=== PATIENT | male | born 1995 | race Caucasian/White ===

== ENCOUNTER 2017-01-13 09:54 | Emergency (ER) | payer OTHER ==
[~2017-01-13] VITALS: Ht 193 cm; Wt 151.1 kg
[~2017-01-13 09:54] MED LIST: ALBUTEROL17 GM IH
[2017-01-13 11:31] VITALS: BP 129/105
== END 2017-01-13 11:32 | disposition home or self-care (01) ==
LOC: EME 09:54
DX: F51.4 Sleep terrors [night terrors] (principal); F51.3 Sleepwalking [somnambulism]; Z87.820 Personal history of traumatic brain injury; Z88.0 Allergy status to penicillin
CPT/HCPCS: 99281; 99283

== ENCOUNTER 2017-06-24 03:16 | Emergency (ER) | payer OTHER ==
[~2017-06-24] VITALS: Ht 193 cm; Wt 147.4 kg
[2017-06-24 13:04] VITALS: BP 119/68
[2017-06-25] MEDS ORDERED: ATIVAN2 MG PO (17:12)
[2017-06-25] MEDS ORDERED: THIAMINE HCL100 MG PO (17:12)
== END 2017-06-24 15:00 | disposition home or self-care (01) ==
LOC: EME → EDBD 03:16 → EME 15:00
DX: F10.129 Alcohol abuse with intoxication, unspecified (principal); Y90.8 Blood alcohol level of 240 mg/100 ml or more; R45.1 Restlessness and agitation; J45.909 Unspecified asthma, uncomplicated; Z88.0 Allergy status to penicillin
CPT/HCPCS: 90837; 99281; 99285; G0480; J1630

== ENCOUNTER 2017-06-25 13:24 | Emergency (ER) | payer OTHER ==
[~2017-06-25] VITALS: Ht 190.5 cm; Wt 144.2 kg
[2017-06-25 15:41] LABS: HEMATOCRIT 50.4 % (38.0-50.0); MCH 31.2 PG (29.0-34.0); MCHC 34.9 G/DL (30.0-36.0); MCV 89.2 FL (86-99); MEAN PLAT.VOLUME 8.4 uM^3 (9.0-12.4); PLATELET COUNT 420 K/uL (156-360); RBC DIS.WIDTH-CV 11.8 % (11.8-14.6); RBC DIS.WIDTH-SD 38.1 % (39-53); RED BLOOD COUNT 5.65 M/uL (4.00-5.50); WHITE BLOOD COUNT 14.7 K/uL (4.1-10.2)
[2017-06-25 15:50] LABS: CHLORIDE 103 mEq/L (99-109); POTASSIUM 3.6 mEq/L (3.7-5.4); SODIUM 143 mEq/L (136-147)
[2017-06-25 15:52] LABS: GLUCOSE 131 mg/dL (70-99)
[2017-06-25 15:53] LABS: ANION GAP 24 MEQ/L (2-14)
[2017-06-25 15:56] LABS: GFR ESTIMATE (CALCULATED) > 59 mL/min/
[2017-06-25 15:57] LABS: UREA NITROGEN (BUN) 9 mg/dL (9-23)
[2017-06-25 16:11] LABS: SERUM ETHYL ALCOHOL < 10 mg/dL
[2017-06-25] MEDS ORDERED: ATIVAN2 MG PO (17:12)
[2017-06-25] MEDS ORDERED: THIAMINE HCL100 MG PO (17:12)
[2017-06-25 18:31] VITALS: BP 153/80
== END 2017-06-25 18:32 | disposition home or self-care (01) ==
LOC: EME 13:24
PROVIDERS: Physician Assistant
PROC: 3E0234Z Introduction of Serum, Toxoid and Vaccine into Muscle, Percutaneous Approach (ICD-10-PCS; principal; 2017-06-25)
DX: F10.239 Alcohol dependence with withdrawal, unspecified (principal); M62.838 Other muscle spasm; R11.0 Nausea; M54.2 Cervicalgia; Z23 Encounter for immunization; J45.909 Unspecified asthma, uncomplicated; F17.200 Nicotine dependence, unspecified, uncomplicated
CPT/HCPCS: 80048; 81003; 82550; 82553; 85027; 99281; 99284; G0480; J3360; J3411; J7030; J7050

== ENCOUNTER 2018-01-13 20:20 | Emergency (ER) | payer SELFPAY ==
[~2018-01-13] VITALS: Ht 190.5 cm; Wt 143.0 kg
[~2018-01-13 20:20] MED LIST changes: +ATIVAN2 MG PO; +THIAMINE HCL100 MG PO
[2018-01-14 00:32] LABS: HEMATOCRIT 43.7 % (38.0-50.0); HEMOGLOBIN 15.5 G/DL (12.5-16.6); MCHC 35.5 G/DL (30.0-36.0); MCV 90.1 FL (86-99); PLATELET COUNT 261 K/uL (156-360); RBC DIS.WIDTH-CV 11.7 % (11.8-14.6); RBC DIS.WIDTH-SD 38.1 % (39-53); RED BLOOD COUNT 4.85 M/uL (4.00-5.50); WHITE BLOOD COUNT 7.4 K/uL (4.1-10.2)
[2018-01-14 00:48] LABS: ALBUMIN 4.4 g/dL (3.2-4.8); CHLORIDE 105 mEq/L (99-109); POTASSIUM 3.9 mEq/L (3.7-5.4); SODIUM 138 mEq/L (136-147)
[2018-01-14 00:50] LABS: GLUCOSE 91 mg/dL (70-99)
[2018-01-14 00:51] LABS: TOTAL PROTEIN 6.7 g/dL (6.4-8.3)
[2018-01-14 00:52] LABS: TOTAL BILIRUBIN 1.6 mg/dL (0.0-1.0)
[2018-01-14 00:54] LABS: ALKALINE PHOSPHATASE 55 IU/L (3-129); GFR ESTIMATE (CALCULATED) > 59 mL/min/ (58.99-99999)
[2018-01-14 00:55] LABS: UREA NITROGEN (BUN) 7 mg/dL (9-23)
[2018-01-14 00:56] LABS: AST (GOT) 30 IU/L (2-34)
[2018-01-14 00:57] LABS: ALT (GPT) 45 IU/L (3-49); LIPASE 14 U/L (1.0-51.0)
[2018-01-14 01:29] LABS: APPEARANCE SL.HAZY ((CLEAR)); BILIRUBIN NEGATIVE; BLOOD NEGATIVE; COLOR YELLOW ((YELLOW)); GLUCOSE (STRIP) NEGATIVE; KETONES NEGATIVE; LEUKOCYTES NEGATIVE; NITRITE NEGATIVE; PROTEIN (STRIP) NEGATIVE; SPECIFIC GRAVITY 1.017 (1.000-1.030); UROBILINOGEN 0.2 MG/DL (0.2-1.0)
[2018-01-14 01:48] LABS: BACTERIA RARE /HPF; EPITHELIAL CELLS NONE SEEN /HPF; MUCUS TRACE /LPF; RED BLOOD CELLS 0-5 /HPF (0-5); UCUL ADDED? NO; WHITE BLOOD CELLS 0-5 /HPF (0-5)
[2018-01-14 02:00] VITALS: BP 114/71
== END 2018-01-14 02:00 | disposition home or self-care (01) ==
LOC: EME 20:20
PROVIDERS: Physician Assistant
DX: R10.9 Unspecified abdominal pain (principal); K21.9 Gastro-esophageal reflux disease without esophagitis; B34.9 Viral infection, unspecified; R07.89 Other chest pain; R51 Headache; R00.2 Palpitations; R19.7 Diarrhea, unspecified; J45.909 Unspecified asthma, uncomplicated; F17.200 Nicotine dependence, unspecified, uncomplicated
CPT/HCPCS: 80053; 81003; 83690; 85027; 87502; 93005; 99281; 99285

== ENCOUNTER 2018-07-14 20:55 | Emergency (ER) | payer SELFPAY ==
[~2018-07-14] VITALS: Ht 188 cm; Wt 141.7 kg
[2018-07-14 21:19] LABS: HEMATOCRIT 44.9 % (38.0-50.0); MCH 31.4 PG (29.0-34.0); MCHC 35.6 G/DL (30.0-36.0); PLATELET COUNT 290 K/uL (156-360); RBC DIS.WIDTH-CV 11.5 % (11.8-14.6); RBC DIS.WIDTH-SD 36.9 % (39-53); WHITE BLOOD COUNT 8.3 K/uL (4.1-10.2)
[2018-07-14 21:24] LABS: APPEARANCE CLEAR ((CLEAR)); BILIRUBIN NEGATIVE; BLOOD NEGATIVE; COLOR COLORLESS ((YELLOW)); GLUCOSE (STRIP) NEGATIVE; KETONES NEGATIVE; LEUKOCYTES NEGATIVE; NITRITE NEGATIVE; PROTEIN (STRIP) NEGATIVE; SPECIFIC GRAVITY 1.002 (1.000-1.030); UCUL ADDED? NO; UROBILINOGEN 0.2 MG/DL (0.2-1.0)
[2018-07-14 21:26] LABS: ALBUMIN 4.7 g/dL (3.2-4.8)
[2018-07-14 21:27] LABS: CHLORIDE 103 mEq/L (99-109); POTASSIUM 3.8 mEq/L (3.7-5.4); SODIUM 141 mEq/L (136-147)
[2018-07-14 21:29] LABS: GLUCOSE 125 mg/dL (70-99); TOTAL PROTEIN 7.4 g/dL (6.4-8.3)
[2018-07-14 21:31] LABS: TOTAL BILIRUBIN 1.6 mg/dL (0.0-1.0)
[2018-07-14 21:32] LABS: ALKALINE PHOSPHATASE 65 IU/L (3-129)
[2018-07-14 21:33] LABS: CREATININE 1.3 mg/dL (0.6-1.3); GFR ESTIMATE (CALCULATED) > 59 mL/min/ (58.99-99999)
[2018-07-14 21:34] LABS: AST (GOT) 20 IU/L (2-34); UREA NITROGEN (BUN) 11 mg/dL (9-23)
[2018-07-14 21:36] LABS: ALT (GPT) 33 IU/L (3-49)
[2018-07-14 22:24] LABS: D-DIMER ELISA < 150.00 ng/mLDDU (<230)
[2018-07-14 22:32] LABS: LIPASE 15 U/L (1.0-51.0)
[2018-07-14 22:37] LABS: COCAINE NEGATIVE (150 ng/mL); METHAMPHETAMINE NEGATIVE (500 ng/mL); PHENCYCLIDINE NEGATIVE (25 ng/mL); THC CANNABINOIDS NEGATIVE (50 ng/mL)
[2018-07-14 22:38] LABS: AMPHETAMINE NEGATIVE (500 ng/mL); BARBITURATES NEGATIVE (200 ng/mL); BENZODIAZEPINES NEGATIVE (150 ng/mL); BUPRENORPHINE NEGATIVE (10 ng/mL); METHADONE NEGATIVE (200 ng/mL); OPIATES (MORPHINE) NEGATIVE (100 ng/mL); OXYCODONE NEGATIVE (100 ng/mL); PROPOXYPHENE NEGATIVE (300 ng/mL); TRICYCLIC ANTIDEPRESSANTS NEGATIVE (300 ng/mL)
[2018-07-14] MEDS ORDERED: FAMOTIDINE20 MG PO (23:33)
[2018-07-14] MEDS ORDERED: VISTARIL50 MG PO (23:34)
[2018-07-14 23:51] VITALS: BP 138/89
== END 2018-07-14 23:58 | disposition home or self-care (01) ==
LOC: EME 20:55
DX: R10.13 Epigastric pain (principal); R30.0 Dysuria; J45.909 Unspecified asthma, uncomplicated; K21.9 Gastro-esophageal reflux disease without esophagitis; F17.200 Nicotine dependence, unspecified, uncomplicated; Z88.0 Allergy status to penicillin
CPT/HCPCS: 71046; 74018; 80053; 81003; 82948; 83690; 85027; 85379; 93005; 99281; 99284